=== PATIENT | male | born 1970 | race Caucasian/White ===

== ENCOUNTER 2016-11-26 10:56 | Emergency (ER) | payer OTHER ==
[~2016-11-26] VITALS: Ht 172.7 cm; Wt 70.0 kg
[~2016-11-26 10:56] MED LIST: NO MEDS
[2016-11-26 10:59] VITALS: Ht 172.7 cm; Wt 70.0 kg
--- NOTE | 2016-11-26 11:37 | ERD ---
ER Documentation Chief Complaint Date/Time DATE: 11/26/16 TIME: 11:35 Chief Complaint epigastric pain , vomiting ,shaky, admits drinking alcohol last 4 days HPI Patient is a 46-year-old male who presents with feeling shaky after stopping drinking yesterday. The patient reports that he has been drinking about 1/2 pint of liquor daily for 5 days. He denies hallucinations, seizures. He reports a few episodes of vomiting of nonbloody nonbilious emesis. He denies dark stool. Denies significant abdominal pain. ROS All systems reviewed and are negative except as per history of present illness. Medications Home Meds Active Scripts Famotidine* (Pepcid*) 20 Mg Tablet, 20 MG PO BID for 7 Days, TAB Prov:THEODORE KELLY MD 11/26/16 Chlordiazepoxide* (Chlordiazepoxide*) 25 Mg Capsule, 25 MG PO Q8 Y for CONTROL WITHDRAWAL SYMPTOMS, #10 CAP Prov:THEODORE KELLY MD 11/26/16 Discontinued Reported Medications [No Meds] No Conflict Check 07/15/12 Allergies Allergies: Coded Allergies: No Known Allergy (Unverified , 11/26/16) PMhx/Soc Past medical history: Alcoholism, peptic ulcer disease, hernia Past surgical history: Pinky finger Social history: Drinks alcohol heavily, denies drugs or tobacco Hx Alcohol Use: No Hx Substance Use: No Hx Tobacco Use: No FmHx Family History: diabetes, No coronary disease Physical Exam Vitals Vital Signs Date Time Temp Pulse Resp B/P Pulse Ox O2 Delivery O2 Flow Rate FiO2 11/26/16 11:45 104 21 142/94 98 Room Air 11/26/16 10:59 98.2 116 18 134/85 98 Physical Exam Const: Alert, in no acute distress Head: Atraumatic Eyes: Normal Conjunctiva, no pallor or icterus ENT: Normal External Ears, Nose and Mouth. Mucous membranes moist, tongue fasciculations Neck: Full range of motion..~ No meningismus. Resp: Clear to auscultation bilaterally, no wheezes, no rales Cardio: Mild tachycardia, regular rhythm, no murmurs Abd: Soft, non tender, non distended. Normal bowel sounds, no guarding, no rebound Skin: No petechiae or rashes Back: No midline or flank tenderness Ext: No cyanosis, or edema Neur: Awake and alert, cranial nerves II through XII intact bilaterally, strength and sensation intact in 4 extremities, mild tremor. Psych: Normal Mood and Affect Results 24 hrs Current Medications Medications (Trade) Dose Ordered Sig/Inga Route PRN Reason Start Time Stop Time Status Last Admin Dose Admin Chlordiazepoxide (Librium) 25 mg ONCE ONCE PO 11/26/16 12:00 11/26/16 12:01 DC 11/26/16 11:41 Ondansetron HCl (Zofran Tab) 4 mg ONCE ONCE PO 11/26/16 12:00 11/26/16 12:01 DC 11/26/16 12:16 Famotidine (Pepcid) 20 mg ONCE ONCE PO 11/26/16 12:00 11/26/16 12:01 DC 11/26/16 11:42 Procedures/MDM MDM: Patient is a 46-year-old male who presents with mild alcohol withdrawal symptoms. He was given p.o. Librium, Zofran and Pepcid, and is caught tolerating oral intake. He does not have any ongoing signs of alcohol withdrawal. He is hemodynamically stable. Laboratory testing was not felt to be indicated. The patient was discharged home with prescription for Librium and Pepcid. He was advised on return precautions if his symptoms worsen. Departure Diagnosis: Primary Impression: Alcohol withdrawal syndrome Complication of substance-induced condition: uncomplicated Qualified Code: F10.230 - Alcohol withdrawal syndrome, uncomplicated Additional Impression: Gastritis Gastritis type: alcoholic Chronicity: acute Gastritis bleeding: without bleeding Qualified Code: K29.20 - Acute alcoholic gastritis without hemorrhage Condition: THEODORE Roman MD November 26, 2016 11:37
[2016-11-26 11:45] VITALS: BP 142/94; PULSE 104; RESP 21
[2016-11-26] MEDS ORDERED: ONDANSETRON 4 MG TAB PO ONE (12:00)
[2016-11-26] MEDS ORDERED: CHLORDIAZEPOXIDE 25 MG CAP PO ONE (12:00)
[2016-11-26] MEDS ORDERED: FAMOTIDINE 20 MG TAB PO ONE (12:00)
[2016-11-26] MEDS ORDERED: FAMO-18 PO (13:21)
[2016-11-26] MEDS ORDERED: CHLO25CA9 PO (13:21)
== END 2016-11-26 13:32 | disposition home or self-care (01) ==
LOC: E/R 10:56
DX: F10.230 Alcohol dependence with withdrawal, uncomplicated (principal); R40.2252 Coma scale, best verbal response, oriented, at arrival to emergency department; K29.20 Alcoholic gastritis without bleeding; R11.10 Vomiting, unspecified; R40.2142 Coma scale, eyes open, spontaneous, at arrival to emergency department; R40.2362 Coma scale, best motor response, obeys commands, at arrival to emergency department
CPT/HCPCS: Z7502; Z7610; 99283

== ENCOUNTER 2018-03-27 18:07 | Emergency (ER) | END 2018-03-27 22:11 | disposition home or self-care (01) ==

== ENCOUNTER 2018-05-14 07:33 | Day surgery (SDC) | END 2018-05-14 14:23 | disposition home or self-care (01) ==

== ENCOUNTER 2018-05-25 16:10 | Inpatient (IN) | END 2018-05-26 15:49 | disposition home or self-care (01) | DRG 905 ==